=== PATIENT | female | born 1960 | race Caucasian/White ===

== ENCOUNTER → 2017-07-19 | Outpatient (CLI) | payer OTHER ==
[~2017-07-19] MED LIST: ASPIRIN81 M2; CIPROFLOXIN HC2.5 M1 OTIC; FLEXERIL PO; GLUMETZA500; LOPRESSOR25; VITAMIN D-32000 UNIT PO; VITAMIN E400 UNIT; ZOCOR40 MG; ZOLOFT 50 MG TA50 M1
[2017-07-19 07:20] LABS: HEMATOCRIT 34.2 % (37.0-47.0); HEMOGLOBIN 10.7 gm/dL (12.0-15.0); MCH 20.2 pg (26.0-34.0); MCHC 31.4 g/dL (28.0-37.0); MCV 64.5 fL (80.0-100.0); MPV 9.9 fl. (7.2-11.1); RBC 5.3 mil/uL (4.20-5.00); RDW-CV 16.5 % (10.5-14.5); WBC 7.3 thou/uL (4.0-11.0)
[2017-07-19 07:23] LABS: URINE BILIRUBIN NEGATIVE (Negative); URINE BLOOD NEGATIVE (Negative); URINE CLARITY CLEAR; URINE COLOR YELLOW; URINE GLUCOSE-RANDOM NEGATIVE (Negative); URINE KETONES NEGATIVE (Negative); URINE LEUKOCYTES NEGATIVE (Negative); URINE NITRITE NEGATIVE (Negative); URINE PROTEIN NEGATIVE (Negative); URINE SPECIFIC GRAVITY 1.025 (1.005-1.030); URINE UROBILINOGEN 0.2 E.U./dl (0.2-1.0)
[2017-07-19 07:42] LABS: ALBUMIN 3.8 g/dL (3.4-5.0); ALKALINE PHOSPHATASE 71 U/L (46-116); ANION GAP 8 mmol/L (7-16); BUN 16 mg/dL (7-18); CALCIUM 8.6 mg/dL (8.5-10.1); CHLORIDE 108 mmol/L (98-107); CHOLESTEROL 219 mg/dL (<200); CO2 28 mmol/L (21-32); CREATININE 0.8 mg/dL (0.6-1.3); GLUCOSE 109 mg/dL (70-99); HDL CHOLESTEROL 59 mg/dL (>40); LDL CHOLESTEROL 118 mg/dL (<100); POTASSIUM 3.6 mmol/L (3.5-5.1); SGOT 20 U/L (15-37); SGPT 22 U/L (30-65); SODIUM 144 mmol/L (136-145); TC:HDL 3.7 Ratio (Not establshd); TOTAL BILIRUBIN 0.7 mg/dL (<0.1-1.0); TOTAL PROTEIN 6.6 g/dL (6.4-8.2); TRIGLYCERIDE 210 mg/dL (<150); VLDL 42 mg/dL (<40)
[2017-07-19 07:47] LABS: SERUM ASSESSMENT Clear
[2017-07-20 02:07] LABS: GLYCOHEMOGLOBIN (HGB A1C) 5.6 % (4.8-5.6)
== END ==
LOC: M.LAB 06:56
PROVIDERS: Nurse Practitioner Family
DX: I10 Essential (primary) hypertension (principal); E78.5 Hyperlipidemia, unspecified; E11.9 Type 2 diabetes mellitus without complications

== ENCOUNTER 2017-09-07 18:15 | Emergency (ER) | payer OTHER ==
[~2017-09-07] VITALS: Ht 154.9 cm; Wt 68.0 kg
[~2017-09-07 18:15] MED LIST changes: -CIPROFLOXIN HC2.5 M1 OTIC; -VITAMIN D-32000 UNIT PO
[2017-09-07] MEDS ORDERED: VITAMIN D-32000 UNIT PO (18:26)
[2017-09-07] MEDS ORDERED: CIPROFLOXIN HC2.5 M1 OTIC (19:18)
[2017-09-07 20:12] VITALS: BP 164/77
== END 2017-09-07 20:14 | disposition home or self-care (01) ==
LOC: M.ERS 18:15
DX: T65.891A Toxic effect of other specified substances, accidental (unintentional), initial encounter (principal); T26.61XA Corrosion of cornea and conjunctival sac, right eye, initial encounter; T26.62XA Corrosion of cornea and conjunctival sac, left eye, initial encounter; E11.9 Type 2 diabetes mellitus without complications; Z87.442 Personal history of urinary calculi; Y92.89 Other specified places as the place of occurrence of the external cause; Y93.89 Activity, other specified; Y99.8 Other external cause status

== ENCOUNTER → 2017-11-12 | Outpatient (CLI) | payer OTHER ==
[~2017-11-12] MED LIST changes: +CIPROFLOXIN HC2.5 M1 OTIC; +VITAMIN D-32000 UNIT PO
== END ==
LOC: M.RAD 15:38
DX: Z12.31 Encounter for screening mammogram for malignant neoplasm of breast (principal); E11.9 Type 2 diabetes mellitus without complications

== ENCOUNTER → 2018-04-08 | Outpatient (CLI) | payer OTHER ==
[2018-04-08 08:43] LABS: ABSOLUTE BASOPHILS 0.1 thou/uL (0.0-0.2); ABSOLUTE EOSINOPHILS 0.1 thou/uL (0.0-0.7); ABSOLUTE LYMPHOCYTES 1.7 thou/uL (0.8-5.3); ABSOLUTE MONOCYTES 0.4 thou/uL (0.0-1.2); ABSOLUTE NEUTROPHILS 4.9 thou/uL (1.6-8.1); BASOPHILS 0.8 %; EOSINOPHILS 0.7 %; HEMATOCRIT 34.3 % (37.0-47.0); HEMOGLOBIN 10.9 gm/dL (12.0-15.0); LYMPHOCYTES 24.2 %; MCH 20.5 pg (26.0-34.0); MCHC 31.7 g/dL (28.0-37.0); MCV 64.6 fL (80.0-100.0); MPV 10.2 fl. (7.2-11.1); NUCLEATED RBCS 0 /100WBC; PLATELET COUNT* 189 thou/uL (150-400); POLYS 68.3 %; RBC 5.31 mil/uL (4.20-5.00); RDW-CV 16.7 % (10.5-14.5); WBC 7.1 thou/uL (4.0-11.0)
[2018-04-08 09:00] LABS: MICROCYTES 2+; TEARDROPS 2+
[2018-04-08 09:01] LABS: ANISOCYTOSIS 3+; PLATELET ESTIMATE ADEQUATE
[2018-04-08 09:03] LABS: ALBUMIN 3.6 g/dL (3.4-5.0); ALKALINE PHOSPHATASE 73 U/L (46-116); ANION GAP 5 mmol/L (7-16); BUN 16 mg/dL (7-18); CALCIUM 8.6 mg/dL (8.5-10.1); CHLORIDE 107 mmol/L (98-107); CHOLESTEROL 178 mg/dL (<200); CO2 29 mmol/L (21-32); CREATININE 0.9 mg/dL (0.6-1.3); GLUCOSE 110 mg/dL (70-99); HDL CHOLESTEROL 58 mg/dL (>40); LDL CHOLESTEROL 90 mg/dL (<100); POTASSIUM 4.1 mmol/L (3.5-5.1); SERUM ASSESSMENT Clear; SGOT 16 U/L (15-37); SGPT 19 U/L (30-65); SODIUM 141 mmol/L (136-145); TC:HDL 3.1 Ratio (Not establshd); TOTAL BILIRUBIN 0.7 mg/dL (<0.1-1.0); TOTAL PROTEIN 6.3 g/dL (6.4-8.2); TRIGLYCERIDE 153 mg/dL (<150); VLDL 31 mg/dL (<40)
== END ==
LOC: M.LAB 08:14
PROVIDERS: Family Medicine
DX: E11.9 Type 2 diabetes mellitus without complications (principal); I10 Essential (primary) hypertension; E78.2 Mixed hyperlipidemia; E55.9 Vitamin D deficiency, unspecified; D56.1 Beta thalassemia; R53.83 Other fatigue

== ENCOUNTER → 2018-12-11 | Outpatient (CLI) | payer OTHER | LOC: M.RAD 08:23 | DX: Z12.31 Encounter for screening mammogram for malignant neoplasm of breast (principal) ==

== ENCOUNTER → 2019-03-11 | Outpatient (CLI) | payer OTHER ==
[2019-03-11 07:08] LABS: ABSOLUTE BASOPHILS 0.1 thou/uL (0.0-0.2); ABSOLUTE LYMPHOCYTES 1.7 thou/uL (0.8-5.3); ABSOLUTE MONOCYTES 0.5 thou/uL (0.0-1.2); ABSOLUTE NEUTROPHILS 4.1 thou/uL (1.6-8.1); BASOPHILS 1.2 %; EOSINOPHILS 0.7 %; HEMATOCRIT 36.1 % (37.0-47.0); HEMOGLOBIN 11.4 gm/dL (12.0-15.0); LYMPHOCYTES 26.2 %; MCH 20.2 pg (26.0-34.0); MCHC 31.6 g/dL (28.0-37.0); MPV 10.3 fl. (7.2-11.1); NUCLEATED RBCS 0 /100WBC; PLATELET COUNT* 187 thou/uL (150-400); POLYS 63.9 %; RBC 5.64 mil/uL (4.20-5.00); RDW-CV 16.3 % (10.5-14.5); WBC 6.4 thou/uL (4.0-11.0)
[2019-03-11 07:20] LABS: ALKALINE PHOSPHATASE 67 U/L (46-116); ANION GAP 10 mmol/L (7-16); BUN 15 mg/dL (7-18); CALCIUM 8.4 mg/dL (8.5-10.1); CHLORIDE 105 mmol/L (98-107); CHOLESTEROL 183 mg/dL (<200); CO2 27 mmol/L (21-32); CREATININE 0.9 mg/dL (0.6-1.3); GLUCOSE 108 mg/dL (70-99); HDL CHOLESTEROL 61 mg/dL (>40); LDL CHOLESTEROL 89 mg/dL (<100); POTASSIUM 3.6 mmol/L (3.5-5.1); SGOT 15 U/L (15-37); SGPT 20 U/L (30-65); SODIUM 142 mmol/L (136-145); TOTAL BILIRUBIN 0.8 mg/dL (<0.1-1.0); TOTAL PROTEIN 6.7 g/dL (6.4-8.2); TRIGLYCERIDE 165 mg/dL (<150); VLDL 33 mg/dL (<40)
[2019-03-11 07:21] LABS: SERUM ASSESSMENT Clear
[2019-03-11 07:25] LABS: URINE BILIRUBIN NEGATIVE (Negative); URINE BLOOD NEGATIVE (Negative); URINE CLARITY CLEAR; URINE COLOR YELLOW; URINE GLUCOSE-RANDOM NEGATIVE (Negative); URINE KETONES NEGATIVE (Negative); URINE LEUKOCYTES 1+ (Negative); URINE NITRITE NEGATIVE (Negative); URINE PROTEIN NEGATIVE (Negative); URINE UROBILINOGEN 0.2 E.U./dl (0.2-1.0)
[2019-03-11 07:34] LABS: BACTERIA 1-9 Few /HPF (None Seen); CASTS None Seen /LPF (None Seen); CRYSTALS None Seen /LPF (None Seen); MUCUS None Seen strn/LPF (None Seen); SQUAMOUS 0-3 Few /LPF (0-3); URINE RBC 0-2 Rare /HPF (0-2); URINE WBC 0-5 Rare /HPF (0-5)
[2019-03-11 08:24] LABS: ANISOCYTOSIS 1+; HYPOCHROMASIA 2+; MICROCYTES 2+; PLATELET ESTIMATE ADEQUATE
[2019-03-11 23:08] LABS: GLYCOHEMOGLOBIN (HGB A1C) 5.6 % (4.8-5.6)
== END ==
LOC: M.LAB 06:47
PROVIDERS: Family Medicine
DX: Z00.01 Encounter for general adult medical examination with abnormal findings (principal); E11.65 Type 2 diabetes mellitus with hyperglycemia; R07.89 Other chest pain; I10 Essential (primary) hypertension; K21.9 Gastro-esophageal reflux disease without esophagitis; F44.1 Dissociative fugue

== ENCOUNTER → 2019-04-21 | Outpatient (CLI) | payer OTHER ==
--- NOTE | 2019-04-21 16:12 | EXE ---
[place] [address] STRESS ECHOCARDIOGRAM Name: MARBIN JEREZ Leni Room: [facility]#: [id number] Admission: 04/21/19 Attend Phys: Pastor Dunn MD Discharge: Date of : 58 Date of Service: 04/21/19 1611 Report #: [id number] THIS REPORT FOR: cc: Silver Barrios Russell J. DO Blick,Pastor Gomez MD [facility] ~ APPROVED REPORT Study performed: 04/21/2019 14:53:21 Exam: Stress Echocardiogram Indication: Chest pain , Abn EKG Patient Location: Out-Patient Stress Nurse: Tabatha Delvalle RN Supervising Physician: Pastor Dunn MD Ht: 5 ft 1 in HR: 66 bpm BP: 198/95 mmHg Medical History Cardiac Risk Factors: HTN, DM, Tobacco History (Former), FHX of CAD Procedure The patient underwent an Exercise Stress Test using the Mazin Protocol. Blood pressure, heart rate, and EKG were monitored. An Echocardiogram was performed by biomedical electronics technician in four stages in quad fashion. At peak stress, four selected images were obtained and placed side by side with resting images for comparison. Stress Test Details Stress Test: Exercise stress testing was performed using a Maizn protocol. HR Resting HR: 66 bpm Max Heart Rate (APMHR): 161 bpm Max HR Achieved: 169 bpm Target HR (85% APMHR): 136 bpm % of APMHR: 104 Recovery HR: 85 bpm HR response to stress: Normal HR response to stress BP Resting BP: 198/95 mmHg Max BP: 268/83 mmHg Recovery BP: 159/83 [place] [address] STRESS ECHOCARDIOGRAM Name: MARBIN JEREZ Room: [facility]#: [id number] Admission: 04/21/19 Attend Phys: Pastor Dunn MD Discharge: Date of : 58 Date of Service: 04/21/19 1611 Report #: [id number] BP response to stress: Abnormal hypertensive response to stress. ECG Resting ECG: Sinus Rhythm, RBBB Stress ECG: Sinus Rhythm, RBBB ST Change: Normal Maximum ST Deviation: 0 mm Arrhythmia: None Recovery ECG: Sinus Rhythm, RBBB Recovery ST Change: Normal Recovery ST Deviation: 0 mm Recovery Arrhythmia: VPC Clinical Reason for Termination: Completed protocol Exercise duration: 8 min 5 sec Highest Stage Achieved: Stage 3: 3.4 mph at 14% grade. Exercise capacity: 10.16 METs Pre-Stress Echo The resting Echocardiogram showed normal left ventricular contractility with an estimated Ejection Fraction of about 60-65%. Post-Stress Echo The stress Echocardiogram showed normal left ventricular contractility with an estimated Ejection Fraction of about 65-70%. Compared to rest, there were no stress-induced wall motion abnormalities. Conclusion Clinical Response: Non-ischemic Exercise Capacity: Average Stress ECG Response: Non-ischemic Stress Echo Images: Non-ischemic low risk stress echo for predicting future cardiac events Other Information Study Quality: Good <Conclusion> low risk stress echo for predicting future cardiac events <ELECTRONICALLY SIGNED> By: Pastor Dunn MD, [facility] 04/21/191610 10 10 Pastor Dunn MD, FACC /INF
== END ==
LOC: M.CRD 14:07
DX: R07.89 Other chest pain (principal)

== ENCOUNTER 2019-05-06 11:24 | Emergency (ER) | payer OTHER ==
[~2019-05-06] VITALS: Ht 154.9 cm; Wt 65.8 kg
[~2019-05-06 11:24] MED LIST changes: -LOPRESSOR25; +LOPRESSOR25 PO; +ZOCOR20 MG PO; -ZOCOR40 MG; -ZOLOFT 50 MG TA50 M1; +ZOLOFT100 MG PO
[2019-05-06 12:09] LABS: EOSINOPHILS 0.5 %; HEMOGLOBIN 11.5 gm/dL (12.0-15.0); NUCLEATED RBCS 0 /100WBC; RDW-CV 16.1 % (10.5-14.5)
[2019-05-06 12:12] LABS: ABSOLUTE LYMPHOCYTES 2.3 thou/uL (0.8-5.3); ABSOLUTE MONOCYTES 0.5 thou/uL (0.0-1.2); BASOPHILS 0.5 %; HEMATOCRIT 36.3 % (37.0-47.0); LYMPHOCYTES 25.8 %; MCH 20.3 pg (26.0-34.0); MCHC 31.7 g/dL (28.0-37.0); MCV 64.1 fL (80.0-100.0); MONOCYTES 5.8 %; MPV 11.1 fl. (7.2-11.1); PLATELET COUNT* 203 thou/uL (150-400); POLYS 67.4 %; RBC 5.67 mil/uL (4.20-5.00)
[2019-05-06 12:16] LABS: CALCIUM 8.9 mg/dL (8.5-10.1); CREATININE 0.9 mg/dL (0.6-1.3); POTASSIUM 3.8 mmol/L (3.5-5.1)
[2019-05-06 12:20] LABS: ALBUMIN 4.2 g/dL (3.4-5.0); TOTAL BILIRUBIN 0.5 mg/dL (<0.1-1.0); TOTAL PROTEIN 7.1 g/dL (6.4-8.2)
[2019-05-06 12:22] LABS: URINE BILIRUBIN NEGATIVE (Negative); URINE BLOOD 1+ (Negative); URINE CLARITY CLEAR; URINE COLOR YELLOW; URINE GLUCOSE-RANDOM NEGATIVE (Negative); URINE KETONES NEGATIVE (Negative); URINE LEUKOCYTES-REFLEX NEGATIVE (Negative); URINE NITRITE-REFLEX NEGATIVE (Negative); URINE PROTEIN NEGATIVE (Negative); URINE SPECIFIC GRAVITY 1.025 (1.005-1.030); URINE UROBILINOGEN 0.2 E.U./dl (0.2-1.0)
[2019-05-06 12:30] LABS: BACTERIA-REFLEX 1-9 Few /HPF (None Seen); CASTS None Seen /LPF (None Seen); MUCUS 0-3 Light strn/LPF (None Seen); SQUAMOUS 0-3 Few /LPF (0-3); URINE RBC 3-10 Few /HPF (0-2); URINE WBC-REFLEX 0-5 Rare /HPF (0-5)
[2019-05-06 12:32] LABS: CALCIUM OXALATE 4-10 Moderate /LPF (None Seen)
[2019-05-06 12:51] LABS: HYPOCHROMASIA 2+; MICROCYTES 2+; OVALOCYTES 2+; PLATELET ESTIMATE ADEQUATE
[2019-05-06 12:52] LABS: ANISOCYTOSIS 2+; POIKILOCYTOSIS 2+
[2019-05-06] MEDS ORDERED: NORCO 5-325 TA1 EAC1 PO (13:14)
[2019-05-06] MEDS ORDERED: IBUPROFEN 800800 M1 PO (13:14)
[2019-05-06] MEDS ORDERED: FLOMAX0.4 MG PO (13:14)
[2019-05-06 13:25] VITALS: BP 150/62
== END 2019-05-06 13:26 | disposition home or self-care (01) ==
LOC: M.ERS 11:24
PROVIDERS: Nurse Practitioner Family
DX: N20.1 Calculus of ureter (principal); R19.7 Diarrhea, unspecified; E11.9 Type 2 diabetes mellitus without complications; Z87.442 Personal history of urinary calculi

== ENCOUNTER → 2019-06-19 | Outpatient (CLI) | payer OTHER ==
[~2019-06-19] MED LIST changes: +FLOMAX0.4 MG PO; +IBUPROFEN 800800 M1 PO; +NORCO 5-325 TA1 EAC1 PO
== END ==
LOC: M.LAB 09:43
DX: Z03.818 Encounter for observation for suspected exposure to other biological agents ruled out (principal)

== ENCOUNTER → 2019-11-21 | Outpatient (CLI) | payer OTHER | LOC: M.CT 12:14 | PROVIDERS: ATTEND Family Medicine | DX: Z13.6 Encounter for screening for cardiovascular disorders (principal) ==

== ENCOUNTER → 2019-12-12 | Outpatient (CLI) | payer OTHER ==
[2019-12-12 07:42] LABS: ABSOLUTE EOSINOPHILS 0.1 thou/uL (0.0-0.7); ABSOLUTE MONOCYTES 0.6 thou/uL (0.0-1.2); BASOPHILS 0.5 %; EOSINOPHILS 0.6 %; HEMOGLOBIN 11.4 gm/dL (12.0-15.0); LYMPHOCYTES 23.1 %; MCH 20.2 pg (26.0-34.0); MCHC 30.9 g/dL (28.0-37.0); MCV 65.4 fL (80.0-100.0); MONOCYTES 7.2 %; MPV 10.3 fl. (7.2-11.1); NUCLEATED RBCS 0 /100WBC; PLATELET COUNT* 208 thou/uL (150-400); POLYS 68.6 %; RBC 5.66 mil/uL (4.20-5.00); RDW-CV 15.8 % (10.5-14.5); WBC 8.7 thou/uL (4.0-11.0)
[2019-12-12 07:55] LABS: ALBUMIN 4.2 g/dL (3.4-5.0); ALKALINE PHOSPHATASE 68 U/L (46-116); ANION GAP 9 mmol/L (7-16); BUN 19 mg/dL (7-18); CALCIUM 8.8 mg/dL (8.5-10.1); CHLORIDE 105 mmol/L (98-107); CHOLESTEROL 163 mg/dL (<200); CO2 29 mmol/L (21-32); CREATININE 0.9 mg/dL (0.6-1.3); GLUCOSE 99 mg/dL (70-99); HDL CHOLESTEROL 62 mg/dL (>40); LDL CHOLESTEROL 73 mg/dL (<100); POTASSIUM 3.6 mmol/L (3.5-5.1); SGOT 17 U/L (15-37); SGPT 19 U/L (30-65); SODIUM 143 mmol/L (136-145); TC:HDL 2.6 Ratio (Not establshd); TOTAL PROTEIN 7.2 g/dL (6.4-8.2); TRIGLYCERIDE 143 mg/dL (<150); VLDL 29 mg/dL (<40)
[2019-12-12 07:56] LABS: SERUM ASSESSMENT Clear
[2019-12-12 08:23] LABS: HYPOCHROMASIA 3+; MICROCYTES 3+; PLATELET ESTIMATE ADEQUATE
[2019-12-12 08:24] LABS: TEARDROPS 2+
[2019-12-12 08:25] LABS: ANISOCYTOSIS 3+; MACROCYTES Occasional; OVALOCYTES 1+
[2019-12-12 23:06] LABS: GLYCOHEMOGLOBIN (HGB A1C) 5.7 % (4.8-5.6)
== END ==
LOC: M.LAB 07:22
PROVIDERS: ATTEND Family Medicine
DX: Z12.31 Encounter for screening mammogram for malignant neoplasm of breast (principal); E11.65 Type 2 diabetes mellitus with hyperglycemia; I10 Essential (primary) hypertension; E78.2 Mixed hyperlipidemia; K21.9 Gastro-esophageal reflux disease without esophagitis; R53.83 Other fatigue

== ENCOUNTER → 2020-02-12 | Outpatient (CLI) | payer OTHER | LOC: M.RAD 12:53 | PROVIDERS: ATTEND Family Medicine | DX: R07.81 Pleurodynia (principal) ==

== ENCOUNTER 2020-09-20 11:00 | Emergency (ER) | payer OTHER ==
[~2020-09-20] VITALS: Ht 154.9 cm; Wt 68.0 kg
[~2020-09-20 11:00] MED LIST changes: -LOPRESSOR25 PO; +METOPROLOL SUC100 MG PO
[2020-09-20] MEDS ORDERED: BENTYL 10 MG CA10 M1 PO (11:21)
[2020-09-20 12:35] VITALS: BP 155/43
== END 2020-09-20 12:36 | disposition home or self-care (01) ==
LOC: M.ERS 11:00
DX: M25.562 Pain in left knee (principal); R22.42 Localized swelling, mass and lump, left lower limb; E11.9 Type 2 diabetes mellitus without complications; Z79.899 Other long term (current) drug therapy; Z87.442 Personal history of urinary calculi; Z87.898 Personal history of other specified conditions

== ENCOUNTER → 2020-09-24 | Outpatient (CLI) | payer OTHER ==
[~2020-09-24] MED LIST changes: +BENTYL 10 MG CA10 M1 PO
== END ==
LOC: M.MRI 09:31
PROVIDERS: ATTEND Family Medicine
DX: M17.12 Unilateral primary osteoarthritis, left knee (principal); M23.92 Unspecified internal derangement of left knee; M25.562 Pain in left knee

== ENCOUNTER → 2020-11-23 | Outpatient (CLI) | payer OTHER ==
[2020-11-23 08:22] LABS: ABSOLUTE EOSINOPHILS 0.1 thou/uL (0.0-0.7); ABSOLUTE MONOCYTES 0.6 thou/uL (0.0-1.2); ABSOLUTE NEUTROPHILS 4.6 thou/uL (1.6-8.1); BASOPHILS 0.7 %; EOSINOPHILS 0.9 %; HEMATOCRIT 34.5 % (37.0-47.0); HEMOGLOBIN 10.7 gm/dL (12.0-15.0); LYMPHOCYTES 26.9 %; MCH 20.1 pg (26.0-34.0); MCV 64.8 fL (80.0-100.0); MONOCYTES 8.1 %; MPV 9.9 fl. (7.2-11.1); NUCLEATED RBCS 0 /100WBC; PLATELET COUNT* 185 thou/uL (150-400); POLYS 63.4 %; RBC 5.32 mil/uL (4.20-5.00); RDW-CV 16.6 % (10.5-14.5); WBC 7.3 thou/uL (4.0-11.0)
[2020-11-23 08:40] LABS: ALBUMIN 4.1 g/dL (3.4-5.0); ALKALINE PHOSPHATASE 84 U/L (46-116); ANION GAP 10 mmol/L (7-16); BUN 14 mg/dL (7-18); CALCIUM 8.5 mg/dL (8.5-10.1); CHLORIDE 106 mmol/L (98-107); CHOLESTEROL 159 mg/dL (<200); CO2 26 mmol/L (21-32); CREATININE 0.8 mg/dL (0.6-1.3); GLUCOSE 111 mg/dL (70-99); HDL CHOLESTEROL 59 mg/dL (>40); LDL CHOLESTEROL 73 mg/dL (<100); POTASSIUM 3.7 mmol/L (3.5-5.1); SGOT 16 U/L (15-37); SGPT 23 U/L (30-65); SODIUM 142 mmol/L (136-145); TC:HDL 2.7 Ratio (Not establshd); TOTAL BILIRUBIN 0.7 mg/dL (<0.1-1.0); TOTAL PROTEIN 6.4 g/dL (6.4-8.2); TRIGLYCERIDE 135 mg/dL (<150); VLDL 27 mg/dL (<40)
[2020-11-23 08:41] LABS: SERUM ASSESSMENT Clear
[2020-11-23 22:06] LABS: GLYCOHEMOGLOBIN (HGB A1C) 5.9 % (4.8-5.6)
== END ==
LOC: M.LAB 07:31
PROVIDERS: ATTEND Family Medicine
DX: E11.65 Type 2 diabetes mellitus with hyperglycemia (principal); I10 Essential (primary) hypertension; E78.2 Mixed hyperlipidemia

== ENCOUNTER 2021-01-28 16:09 | Emergency (ER) | payer OTHER ==
[~2021-01-28] VITALS: Ht 154.9 cm; Wt 65.8 kg
[2021-01-28] MEDS ORDERED: BACTRIM DS TAB1 EAC1 PO (16:38)
[2021-01-28 18:07] LABS: URINE BILIRUBIN NEGATIVE (Negative); URINE BLOOD 1+ (Negative); URINE COLOR YELLOW; URINE GLUCOSE-RANDOM NEGATIVE (Negative); URINE KETONES TRACE (Negative); URINE LEUKOCYTES-REFLEX 2+ (Negative); URINE NITRITE-REFLEX POSITIVE (Negative); URINE PROTEIN 1+ (Negative); URINE SPECIFIC GRAVITY 1.015 (1.005-1.030)
[2021-01-28 18:08] LABS: URINE CLARITY HAZY
[2021-01-28 18:16] LABS: CASTS None Seen /LPF (None Seen); CRYSTALS None Seen /LPF (None Seen); SQUAMOUS 0-3 Few /LPF (0-3); URINE RBC 0-2 Rare /HPF (0-2); URINE WBC-REFLEX 6-15 Few /HPF (0-5)
[2021-01-28 19:09] LABS: HEMOGLOBIN 9.5 gm/dL (12.0-15.0); MCV 63.1 fL (80.0-100.0)
[2021-01-28 19:11] LABS: HEMATOCRIT 30.4 % (37.0-47.0); MCH 19.8 pg (26.0-34.0); MCHC 31.3 g/dL (28.0-37.0); MPV 12.5 fl. (7.2-11.1); NUCLEATED RBCS 0 /100WBC; PLATELET COUNT* 233 thou/uL (150-400); RBC 4.82 mil/uL (4.20-5.00); RDW-CV 16.4 % (10.5-14.5); WBC 21.4 thou/uL (4.0-11.0)
[2021-01-28 19:18] LABS: CALCIUM 8.6 mg/dL (8.5-10.1); CREATININE 0.9 mg/dL (0.6-1.3); POTASSIUM 3.6 mmol/L (3.5-5.1)
[2021-01-28 19:47] VITALS: BP 141/70
[2021-01-28 20:29] LABS: ABSOLUTE LYMPHOCYTES 1.3 thou/uL (0.8-5.3); ABSOLUTE MONOCYTES 1.3 thou/uL (0.0-1.2); ABSOLUTE NEUTROPHILS 18.8 thou/uL (1.6-8.1); ANISOCYTOSIS 2+; HYPOCHROMASIA 2+; PLATELET ESTIMATE ADEQUATE
[2021-01-28 20:30] LABS: MICROCYTES 2+
== END 2021-01-28 19:48 | disposition still patient (30) ==
LOC: M.ERS 16:09
PROVIDERS: Physician Assistant
DX: N39.0 Urinary tract infection, site not specified (principal); A41.9 Sepsis, unspecified organism; E11.9 Type 2 diabetes mellitus without complications; Z90.89 Acquired absence of other organs; Z79.899 Other long term (current) drug therapy

== ENCOUNTER → 2021-01-31 | Outpatient (CLI) | payer OTHER ==
[~2021-01-31] MED LIST changes: +BACTRIM DS TAB1 EAC1 PO
[2021-01-31 10:41] LABS: EOSINOPHILS 0.6 %; NUCLEATED RBCS 0 /100WBC
[2021-01-31 10:42] LABS: ABSOLUTE LYMPHOCYTES 1.7 thou/uL (0.8-5.3); ABSOLUTE NEUTROPHILS 5.5 thou/uL (1.6-8.1); BASOPHILS 0.3 %; HEMATOCRIT 29.8 % (37.0-47.0); HEMOGLOBIN 9.1 gm/dL (12.0-15.0); LYMPHOCYTES 20.4 %; MCH 19.5 pg (26.0-34.0); MCHC 30.7 g/dL (28.0-37.0); MCV 63.5 fL (80.0-100.0); MONOCYTES 12.2 %; MPV 9.5 fl. (7.2-11.1); PLATELET COUNT* 224 thou/uL (150-400); POLYS 66.5 %; RBC 4.69 mil/uL (4.20-5.00); RDW-CV 17.1 % (10.5-14.5); WBC 8.2 thou/uL (4.0-11.0)
[2021-01-31 11:22] LABS: ANISOCYTOSIS 2+; HYPOCHROMASIA 1+; MICROCYTES 2+; OVALOCYTES 1+; PLATELET ESTIMATE ADEQUATE; TEARDROPS 2+
== END ==
LOC: M.LAB 10:18
PROVIDERS: ATTEND Family Medicine
DX: N30.00 Acute cystitis without hematuria (principal)